=== PATIENT | male | born 1960 | race Caucasian/White ===

== ENCOUNTER 2022-10-06 10:55 | Outpatient (CLI) | payer OTHER, SELFPAY ==
--- NOTE | 2022-10-06 11:15 | CRLHL7_ITS ---
For Patients: As a result of the Century Cures Act, medical imaging exams and procedure reports are released immediately into your electronic medical record. You may view this report before your referring provider. If you have questions, please contact your health care provider. Indication: Right hip pain. Procedure : Informed consent was obtained. The site was marked. Time-out was performed. The skin of the right hip was cleansed with ChloraPrep. A sterile drape was placed. 8 cc of 1 percent lidocaine was administered for superficial anesthesia. Subsequently a 22 gauge spinal needle was introduced into the right hip joint under intermittent fluoroscopic guidance. 7 cc 1 percent lidocaine and 2 cc 40 milligram/cc Depo-Medrol then injected. The needle was removed and hemostasis achieved with direct pressure. A dressing was placed. The patient tolerated the procedure well without immediate complication. Total fluoroscopy time 12 seconds. Impression: Successful fluoroscopically guided right hip injection with 80 milligrams of Depo-Medrol. Dictated by Oli Celis MD @ 10/06/2022 12:20:37 PM (Electronically Signed)
== END 2022-10-06 10:56 | disposition home or self-care (01) ==
LOC: RAD 10:57
PROVIDERS: PCP Family Medicine; Visit Provider Orthopaedic Surgery Sports Medicine
DX: M25.551 Pain in right hip (principal); M16.11 Unilateral primary osteoarthritis, right hip
CPT/HCPCS: 20610; 77002

== ENCOUNTER 2025-05-29 10:20 | Outpatient (CLI) | payer MEDICARE, BC, SELFPAY ==
[2025-05-29 10:42] VITALS: BP 147/82; PULSE 50; RESP 16; TEMP 36.1; O2SAT 99
--- NOTE | 2025-05-29 11:59 | PM.PROC ---
Procedure Note Time Seen by Provider: 11:15 Date Seen: 05/29/25 Provider Contact Time: 12:05 Date of procedure: 05/29/25 Will [facility] bill your pro fee for this procedure?: Yes Procedure: CRYONEUROLYSIS TREATMENT REPORT REFERRING PROVIDER: Monty Quiñones TREATMENT PROVIDER: Nito Moore PREOPERATIVE DIAGNOSIS: Left knee osteoarthritis POSTOPERATIVE DIAGNOSIS: ?Left knee osteoarthritis PROCEDURE: Cryoneurolysis of Multiple Sensory Nerves of the Knee ANESTHESIA: Local INDICATIONS: The patient is a very pleasant 65-year-old male patient with primary osteoarthritis involving the left knee who presents today for cryoneurolysis of multiple sensory nerves to the knee for severe knee pain.?Patient medical history was reviewed. The risks, benefits, treatment alternatives, and complications were discussed with the patient, including but not limited to bleeding, infection, nerve or tissue damage.?Informed consent was obtained. ? PRE-TREATMENT MOTOR ASSESSMENT/PAIN SCORE: Patient was able to demonstrate intact gross motor function with plantarflexion, dorsiflexion, adduction, abduction, hip flexion, and extension of the lower extremity.?Pre-treatment pain score of 5 out of 10 in the left knee. DESCRIPTION OF PROCEDURE: After obtaining informed consent, the patient was brought back to the treatment room and positioned supine on the table.?The left lower extremity was prepped with Chlorhexadine.?We began the procedure by performing our procedural pause.?Once this was completed and verified to be accurate, I began the procedure by identifying the nerves with the use of bedside ultrasound.?After the nerves were identified, the skin was marked and, using 1% lidocaine plain, the area of the nerves were anesthetized. ? After the anesthetic was administered, the Smart Tip 2190 cryoneurolysis needle was inserted into the treatment sites using ultrasound guidance.?Treatment was then initiated on the left lower extremity with the following nerves treated: Superior, superior medial, superior lateral, inferior medial genicular nerves and the infrapatellar branch of the saphenous nerve. At the termination of the treatment, the cryoneurolysis needle was removed with the patient's skin cleansed and Band-Aids and compression dressing applied. Patient tolerated the procedure without any incident or concern.? Patient was then instructed to stand, mobilize the joint, and was examined to ensure gross motor skills were intact. COMPLICATIONS: None POST-TREATMENT PAIN SCORE: 0 out of 10. Left knee DISPOSITION: Discharge instructions were given to the patient with education on the post-procedure expectations. Patient was instructed to call the Ortho clinic with any post-procedure concerns or questions.
[2025-05-29 12:14] VITALS: BP 162/81; PULSE 53; RESP 16; O2SAT 98
== END 2025-05-29 12:17 | disposition home or self-care (01) ==
LOC: OP CLINIC 10:21
PROVIDERS: PCP Family Medicine; Visit Provider Nurse Anesthetist, Certified Registered
DX: M17.12 Unilateral primary osteoarthritis, left knee (principal)
CPT/HCPCS: 64640; 76942; C9809

== ENCOUNTER 2025-06-07 08:25 | Day surgery (SDC) | payer MEDICARE, BC, SELFPAY ==
[2025-06-07] VITALS (14 sets, daily range): BP systolic 103–147; BP diastolic 47–84; PULSE 53–64; RESP 14–20; TEMP 35.8–36.8; O2SAT 90–98; BMI 31.9
[2025-06-07] MEDS: LACTATED RINGERS 1000 ML 1,000 ML 100 ML IV ×2 (09:10→11:49)
[2025-06-07] MEDS: SODIUM CHLORIDE 0.9 % (FLUSH) 10 ML SYRINGE IVF (09:10)
--- NOTE | 2025-06-07 09:31 | W.PM.H&PU ---
History & Physical Update History & Physical Update H&P Reviewed and patient assessed: No changes noted
--- NOTE | 2025-06-07 10:03 | SUR.OPER ---
PATIENT QUESTIONS ANSWERED SATISFACTORILY PREOPERATIVELY.? PATIENT BROUGHT TO OR #3 PER CART AFTER ADMINISTRATION OF A BLOCK.? Patient positioned supine on OR #3 bed.? The perioperative?team supported arms bilaterally on arm boards.? Final approval of positioning by surgeon.?
[2025-06-07] MEDS: OXYCODONE (CR) 10 MG TAB.ER.12H PO (10:50)
[2025-06-07] MEDS: ACETAMINOPHEN 500 MG TABLET 1000 MG PO (10:50)
[2025-06-07] MEDS: MIDAZOLAM HCL 1 MG/ML inj IVP (10:51)
--- NOTE | 2025-06-07 11:06 | SUR.PREOP ---
TIME?OUT:?1050 PT/RN/MDA?VERIFICATION?OF?SURGICAL?SITE,?PROCEDURE,?AND?CONSENT OBTAINED?PRIOR?TO?INVASIVE?PROCEDURE.
--- NOTE | 2025-06-07 11:26 | P.NB_ITS ---
Nerve Block Nerve Block Time Seen by Provider: 10:40 Date Seen: 06/07/25 Type of block requested by surgeon for post-operative analgesia: adductor canal Side: left Time out performed: Yes Verification of patient name: Yes Verification of date of : Yes Site marking: site marked Name of person performing procedure: Olman Martin Continuous monitoring Was continuous monitoring of O2 sat, B/P, radiology physician assistant, recorded every 15 minutes?: Yes Procedure Checklist: sterile prep, needles and gloves Ultrasound guided. Images saved: Yes Medications given in 5ml increments after negative aspiration: Ropivicaine %: 0.5 mL: 30 Needle gauge: 20 Precedex (mcg): 25 Patient tolerated procedure well: Yes Additional comments: Injected in 5mL increments after negative aspiration Block Charges Block Charge (with Pro Fee): Femoral Nerve Use of Ultrasound Machine for Block: Yes- US Guidance/pain block
[2025-06-07] MEDS: TRANEXAMIC ACID 100 MG/ML INJ 1000 MG IV (11:28)
--- NOTE | 2025-06-07 12:37 | PM.ORPRC ---
Procedure Note Date of procedure: 06/07/25 Procedure: PREOPERATIVE DIAGNOSIS: 1. Left knee osteoarthritis, primary, severe POSTOPERATIVE DIAGNOSIS: 1. Left knee osteoarthritis, primary, severe PROCEDURE: 1. Left total knee arthroplasty, Press-Fit, Rotating Platform - No tourniquet SURGEON: Monty Quiñones MD. SENIOR OFFICE SUPPORT ASSISTANT SOSA: JUNG Echeverria - Of note, a skilled patient care nursing assistant was critical for this case to aid in patient positioning, tissue retraction, limb manipulation/positioning, and closure. ANESTHESIA: Spinal anesthetic EBL: 100ml IMPLANTS: DePuy J&J uncemented TKA - Attune PS femur size 6 regular Size 7 tibia Rotating Platform 5 mm RP poly spacer 38 mm Affixium patella TOURNIQUET: None COMPLICATIONS: None evident INDICATIONS: The patient is a pleasant 65-year-old male who has experienced severe left knee pain and difficulty bearing weight. Workup included x-rays which revealed severe osteoarthrosis in the knee. Given the deformity, the dysfunction, and the pain, as well as the failure of nonoperative management, recommendation was made for surgery. FINDINGS: Grade 4 chondromalacia medial, lateral, and patellofemoral compartments. Moderate effusion upon entering the joint. Degenerative meniscus pathology medial greater than lateral. DESCRIPTION OF PROCEDURE: Following a thorough discussion of risks, benefits, and alternatives consent was obtained and the left knee was marked. The patient was brought to the operating room and placed supine on the operating table. Induction of anesthesia was undertaken. 2 g IV Ancef and 1 g tranexamic acid was administered within 1 hr of incision preoperatively. Proper time-out was performed identifying proper patient, site, procedure. The operative extremity was prepped and draped in the appropriate sterile fashion using ChloraPrep after the patient was positioned supine with all bony prominences well padded. A longitudinal, anterior, midline skin incision was made starting approximately 3cm proximal to the superior pole of the patella and advanced distal to the tibial tubercle. A sub vastus approach was utilized. After mobilizing the patella, retropatellar fatpad was resected and the synovium in the suprapatellar pouch excised to visualize the anterior femoral cortex. Patellar prep showed initial measurement/thickness of 24 mm. It was resected back to approximately 14 mm. The patella prep was completed with drilling and a trial placed followed by a protector plate until final component implantation. Femoral preparation was performed via an intramedullary guide. Step drill allowed access into the femoral canal. The distal cutting guide was placed with 5? of valgus and 12 mm cut on the distal femur due to a 5-7 degree flexion contracture. Femur was sized using a anterior referencing guide (in addition to referencing the transepicondylar axis and Stetson's line) in 3? of external rotation. This was found to have a best fit with the sizing noted above. The 4 in 1 cutting block was then placed, and the distal femur shaped accordingly. The box cut was then completed. We turned our attention to the proximal tibia. Extramedullary guide was utilized for cutting with the goal of being 90 degree cut from the mechanical axis of the tibia in the varus/valgus plane utilizing tibial crest as the primary alignment. Initially a 2 mm resection was performed from the medial tibial plateau. Ultimately, balancing was achieved in both flexion and extension in both varus and valgus. The knee was able to achieve full extension comfortably. It was sized to be a best fit with as noted above. At this stage, trial implants were removed, the tibia and femoral and patellar components were opened and inserted. The real poly spacer was opened and inserted. A 3 min Betadine soak performed. Finally, a final irrigation round with normal saline was performed. Closure performed with 0 PDS and #0 Stratafix for the quad tendon/retinaculum. 2-0 Vicryl/Stratafix for the subcutaneous and 4-0 Monocryl for subcuticular closure. Dressings were applied and the patient was awoken from anesthesia and transferred the PACU in stable condition. A skilled patient care nursing assistant was critical for this case to aid in patient positioning, tissue retraction, bone exposure, limb manipulation/positioning, patient safety, and closure. PLAN: 1. Weight bear as tolerated operative extremity. 2. 23 hr perioperative antibiotics. 3. Ice. 4. PT/OT consults for ambulation assistance/mobility education. 5. Social work consult for discharge planning. 6. DVT prophylaxis with at SCDs, and aspirin twice daily.
--- NOTE | 2025-06-07 12:47 | P.NB_ITS ---
Nerve Block Nerve Block Time Seen by Provider: 10:45 Date Seen: 06/07/25 Type of block requested by surgeon for post-operative analgesia: geniculars Side: left Time out performed: Yes Verification of patient name: Yes Verification of date of : Yes Site marking: site marked Name of person performing procedure: Olman Martin Continuous monitoring Was continuous monitoring of O2 sat, B/P, phototypesetting equipment monitor, recorded every 15 minutes?: Yes Procedure Checklist: sterile prep, needles and gloves Ultrasound guided. Images saved: No Medications given in 5ml increments after negative aspiration: Ropivicaine %: 0.5 mL: 12 Needle gauge: 25 Patient tolerated procedure well: Yes Additional comments: Injected in 4 mL increments after negative aspiration Block Charges Block Charge (with Pro Fee): Genicular Nerve Block Use of Ultrasound Machine for Block: No
--- NOTE | 2025-06-07 13:15 | CRLHL7_ITS ---
For Patients: As a result of the Century Cures Act, medical imaging exams and procedure reports are released immediately into your electronic medical record. You may view this report before your referring provider. If you have questions, please contact your health care provider. Indication: LT POST OP TOTAL KNEE Technique: Two views left knee Findings/Impression: Hardware from a left total knee arthroplasty is in satisfactory position. Bone alignment is normal. No sign of acute fracture. Postop changes are within normal limits. Dictated by Oli Celis MD @ 06/10/2025 10:13:51 AM (Electronically Signed)
--- NOTE | 2025-06-07 13:17 | P.ANES_ITS ---
Anesthesia Charges Start Date/Time Anesthesia Start Date: 06/07/25 Anesthesia Start Time: 11:12 Stop Date/Time Anesthesia Stop Date: 06/07/25 Anesthesia Stop Time: 13:15 Coding CPT Codes CPT Codes: ANESTH KNEE ARTHROPLASTY - 95601 ([id number]) P2 - PATIENT W/MILD SYST DISEASE, QZ - MANAGER INTERMEDIATE SVC W/O BLADE ALIGNER BY
--- NOTE | 2025-06-07 13:17 | W.ANESCHARGE ---
Anesthesia Charges Start Date/Time Anesthesia Start Date: 06/07/25 Anesthesia Start Time: 11:12 Stop Date/Time Anesthesia Stop Date: 06/07/25 Anesthesia Stop Time: 13:15 Coding CPT Codes CPT Codes: ANESTH KNEE ARTHROPLASTY - 51857 ([id number]) P2 - PATIENT W/MILD SYST DISEASE, QZ - CASINO SUPERVISOR SVC W/O PARK WARDEN BY
[2025-06-07] MEDS: IBUPROFEN 200 MG TABLET 600 MG PO (14:28)
== END 2025-06-07 16:19 | disposition home or self-care (01) ==
LOC: OR 08:27
PROVIDERS: PCP Family Medicine; Visit Provider Orthopaedic Surgery Sports Medicine
PROC: (CPT 27447; principal; 2025-06-07 10:15)
DX: M17.12 Unilateral primary osteoarthritis, left knee (principal); G89.18 Other acute postprocedural pain; G47.33 Obstructive sleep apnea (adult) (pediatric); Z79.82 Long term (current) use of aspirin; R73.03 Prediabetes
CPT/HCPCS: 27447; 01402; 64447; 64454; 73560; 76942; 97110; 97116; 97161; A9270; C1776; J0690; J1100; J2250; J2371; J2405; J2704; J2795; J3010; J7120

== ENCOUNTER 2025-06-18 15:11 | Outpatient (CLI) | payer MEDICARE, BC, SELFPAY ==
--- NOTE | 2025-06-18 15:00 | CRLHL7_ITS ---
For Patients: As a result of the Century Cures Act, medical imaging exams and procedure reports are released immediately into your electronic medical record. You may view this report before your referring provider. If you have questions, please contact your health care provider. Indication: Left calf swelling, tenderness, s/p TKA surgery. Technique: Real-time longitudinal and transverse sonographic last-scale imaging with and without compression, as well as color, duplex, and spectral Doppler imaging before and after augmentation, was obtained of the deep system of the left lower extremity, including the common femoral, femoral, popliteal, posterior tibial, and peroneal veins. Comparison: None. Findings: Common femoral vein: No evidence of thrombus. Femoral vein: No evidence of thrombus. Popliteal vein: No evidence of thrombus. Calf veins: Patent. Impression: No ultrasound evidence of deep venous thrombosis. Dictated by Nazario Bunn MD @ 06/18/2025 4:14:41 PM (Electronically Signed)
== END 2025-06-18 15:12 | disposition home or self-care (01) ==
PROVIDERS: PCP Family Medicine; Visit Provider Physician Assistant Surgical
DX: M79.605 Pain in left leg (principal); M79.89 Other specified soft tissue disorders; Z96.652 Presence of left artificial knee joint
CPT/HCPCS: 93971; 97110; 97116

== ENCOUNTER 2025-07-16 11:00 | Outpatient (RCR) | payer MEDICARE, BC, SELFPAY ==
--- NOTE | 2025-06-10 14:41 | PT.OPEX ---
PT [place] Outpatient Eval PT [facility] Outpatient Eval Start: 06/10/25 08:58 Freq: Status: Active Protocol: Document 06/10/25 08:59 NLR (Rec: 06/10/25 14:34 NLR [id number]) E-signed By Martínez Mayberry DPT Physical Therapy Outpatient Evaluation Insurance Information Recert Due Date 09/08/25 Insurance Name Medicare B,Blue [employer] Medical Diagnosis s/p L TKA 06/07/25 Treating Diagnosis Left knee pain, decreased ROM and strength, impaired gait and balance Referring MD DR. Quiñones Subjective Subjective Patient is a 65 year old male who presents to physical therapy s/p left TKA on 06/07/25. Patient was discharged home same day, and has been doing well overall. He notes his block lasted for about a day and a half, and was feeling good during this. Now that it has worn off, he has been having more pain and soreness . Utilizing 4WW for gait aide at this time. Using pain medication as prescribed, planning to wean away from this as able. He was able to sleep last night due to using ice machine, which reduces pain and soreness. He has been trying to employ walking into his routine throughout the day, still walking in home at this time. Has been doing exercises a little bit, but focusing on ROM Tech machine. He denies any concerning signs or symptoms of infection or DVT, including fever/chills, nausea/vomiting, night sweats, sharp calf pain or shortness of breath. Pain Comments 5/10 current Better with ice, compression, elevation, mobility short distances Worse with prolonged standing or walking, bending knee, transfers, lying down Date of Next 06/21/25 Physician Visit Date of Surgery (If 06/07/25 applicable) Current Work Status Retired Occupation Frequent golfer, does woodworking, lives on farm and completes his own yardwork Objective Other/Pertinent Observations: Objective ROM: Left knee 0-95. Right knee 0-125. Strength: quad set with good quality, LAQ and SAQ to 5 deg extensor lag. Knee flexion 4/5 with MMT. Neuro: intact light touch sensation. Palpation: tenderness with palpation of left knee generally Integumentary: moderate swelling observed today, minimal distal lower leg. No redness, warmth, incision site drainage present. Incisional dressing over incision. Gait/balance: Patient ambulates with 4WW and decreased knee flexion through swing, decreased knee extension at initial contact. Initial steps require extra time due to soreness. Fair static balance during tasks including normal, narrow, tandem and single leg stance, with intermittent UE support required. Poor dynamic balance during tasks including marching in place, retro and lateral marching, walking with head turns and walking with speed changes, requires UE support. Functional Test LEFS 14/80 Performed & Score Assessment Assessment/ Patient is a 65 year old male who presents to physical Impression therapy s/p L TKA on 06/07/25. Patient is overall doing very well. His pain and swelling are well controlled with pain medication, ice, and elevation. He has been consistent with performance of ROM Tech for knee mobility, and occasionally has completed home exercise program. Walking is improving, with expected gait impairments for current post-operative state. He has also transitioned to using 4WW for most mobility in main level of home and in community. No signs or symptoms of infection or acute DVT at this time. Patient requires skilled PT to address deficits including decreased ROM and strength, impaired gait and balance, and pain to allow for eventual return to prior level of function. Primary Functional decreased range of motion, decreased strength, impaired Limitations gait, impaired balance, pain difficulty with functional mobility and transfers, difficulty with ADLs and IADLs, requires AD for gait, unable to complete community mobility and participate in hobbies like golfing, woodwork, yardwork tasks Plan of Care Rehabilitation Excellent Potential Physical Therapy 1. Patient will be independent and compliant with HEP Goals to allow for progression towards return to prior level of function. a. Goal date: 2025-06-24 2. Patient will be able to demonstrate normal gait pattern without significant deviations to allow for improved functional mobility. a. Goal date: 2025-06-24 3. Patient will be able to demonstrate 0-120 without significant pain reproduction to allow for unrestricted reaching and transfers. a. Goal date:2025-07-22 4. Patient will be able to perform all squatting, lifting, stairs without restriction to allow for return to prior level of function. a. Goal date: 2025-08-05 5. Patient will be able to perform all higher level functional activities including golfing, walking/ standing on even and uneven ground for prolonged periods of time without restriction to allow for return to prior level of function. a. Goal date:2025-09-02 Coordination/ Referral Source,Patient Caregiver,Employer,Jewelry JobberAgent Ticketing Gate With (QRC) Treatment Plan/ Gait Training,Ice/Cold/Vasopneumatic,Joint Mobilization Direct Interventions ,Manual Therapy,Neuromuscular Re-ed,Self-Care/Home Management,Therapeutic Activities,Therapeutic Exercises Frequency/Duration 2x/wk x 8 weeks - 16 total visits Patient Will Be Completion of LTG(s),Skills Plateau,Independent w/HEP, Discharged From Independently Progressing Therapy Evaluation Billing Untimed Code 20 Treatment Minutes Complexity Low Certification Information Initial 06/10/25 Certification Date Ending Certification 09/08/25 Date Provider Signature Yes Required Provider Signature POC & Medical Necessity Shows Agreement With Physician NPI Number Write NPI# Here Physician Comment/ : Change Physician Signature Please Sign/Date Here & Date Requested
== END 2025-07-16 12:37 | disposition home or self-care (01) ==
PROVIDERS: PCP Family Medicine; Visit Provider Orthopaedic Surgery Sports Medicine
DX: Z47.1 Aftercare following joint replacement surgery (principal); Z96.652 Presence of left artificial knee joint; M25.562 Pain in left knee; Z51.89 Encounter for other specified aftercare
CPT/HCPCS: 93971; 97110; 97112; 97116; 97140; 97161